=== PATIENT | female | born 1960 | race Hispanic/Latino ===

== ENCOUNTER 2018-02-03 07:23 | Day surgery (SDC) | payer MEDICAID ==
[~2018-02-03] VITALS: Ht 152.4 cm; Wt 70.9 kg
[~2018-02-03 07:23] MED LIST: BIOT300T2 PO; DOCU-116 PO; HYDR-3421 PO; LORA5SOL PO; OMEP-272 PO; PREG100C PO; TRAZ-144 PO
[2018-02-03 08:00] VITALS: BP 104/65
[2018-02-03] MEDS ORDERED: PROPOFOL 10 MG/ML 20ML VIAL IV ONE (08:31)
[2018-02-03] MEDS ORDERED: SUMA100T16 PO (08:33)
[2018-02-03] MEDS ORDERED: CETI10TA57 PO (08:33)
[2018-02-03] MEDS ORDERED: ESCI10TA54 PO (08:33)
[2018-02-03] MEDS ORDERED: ESOM40CA PO (08:33)
[2018-02-03] MEDS ORDERED: TOPI100T37 PO (08:33)
[2018-02-03 08:52] VITALS: BP 88/38
== END 2018-02-03 09:25 ==
LOC: DAH 07:23
PROVIDERS: ATTEND Internal Medicine
DX: K57.30 Diverticulosis of large intestine without perforation or abscess without bleeding (principal); K64.8 Other hemorrhoids; K29.70 Gastritis, unspecified, without bleeding; F41.9 Anxiety disorder, unspecified; N28.9 Disorder of kidney and ureter, unspecified; Z87.442 Personal history of urinary calculi; Z79.899 Other long term (current) drug therapy; Z90.710 Acquired absence of both cervix and uterus; Z98.890 Other specified postprocedural states
CPT/HCPCS: 45378; A4606; J2704